=== PATIENT | female | born 1990 | race Caucasian/White ===

== ENCOUNTER → 2018-05-06 | Outpatient (CLI) | payer OTHER | LOC: COL.RAD 12:34 | DX: N99.89 Other postprocedural complications and disorders of genitourinary system (principal); N97.1 Female infertility of tubal origin | CPT/HCPCS: Q9967 ==

== ENCOUNTER → 2018-12-28 | Day surgery (SDC) | payer OTHER ==
[~2018-12-28] VITALS: Ht 157.5 cm; Wt 56.0 kg
[~2018-12-28] MED LIST: AMBIEN 5MG TABLE5 MG PO; CEPHALEXIN500 M1 PO; PAXIL 20MG20 MG PO
[2018-12-28 09:45] VITALS: BP 105/60; PULSE 82; TEMP 97.4
[2018-12-28 11:17] VITALS: BP 103/59; PULSE 63; TEMP 98.1
--- NOTE | 2018-12-28 11:17 | NUR ---
Patient arrives back to [facility] drowsy, denies pain or nausea. Patient monitor applied vitals stable. Patient's dressing clean/dry/intact. Patient's friend brought to bedside. Patient given ice chips and soda.
[2018-12-28 11:30] VITALS: BP 92/68; PULSE 67
--- NOTE | 2018-12-28 11:30 | NUR ---
[employer] rep into see patient at this time.
[2018-12-28 11:45] VITALS: BP 93/67; PULSE 63
--- NOTE | 2018-12-28 11:45 | NUR ---
Patient reports she is feeling good and is ready to go home. Vitals stable and within baseline normal limits for patient. Patient tolerates ice chips, soda and crackers well without any nausea. Patient denies pain.
== END ==
LOC: SDCO 08:52
DX: N39.41 Urge incontinence (principal); R35.0 Frequency of micturition; R35.1 Nocturia; R39.11 Hesitancy of micturition; R39.14 Feeling of incomplete bladder emptying; F17.210 Nicotine dependence, cigarettes, uncomplicated; F41.9 Anxiety disorder, unspecified; F32.9 Major depressive disorder, single episode, unspecified; G43.909 Migraine, unspecified, not intractable, without status migrainosus; Z91.040 Latex allergy status
CPT/HCPCS: C1767; C1778; C1787; C1894; J0690; J1580; J1885; J2405; J2704; J3010; J7120

== ENCOUNTER 2019-11-16 16:48 | Emergency (ER) | payer OTHER ==
[~2019-11-16] VITALS: Ht 157.5 cm; Wt 76.4 kg
[2019-11-16 18:05] LABS: BASO % 0.3 % (0.0-2.0); EOS # 0.2 (0.0-0.7); EOS % 1.8 % (0-4.0); GRAN % 67.9 % (42.2-75.2); HEMATOCRIT 42.2 % (37.0-47.0); HEMOGLOBIN 13.9 g/dl (12.5-16.0); LYMPH # 2.2 (1.2-3.4); LYMPH % 24.3 % (20.0-51.0); MEAN CELL VOLUME 92 fl (80.0-100.0); MEAN CORPUSCULAR HEMOGLOBIN 30 pg (27.0-31.0); MEAN CORPUSCULAR HGB CONC 33 g/dl (33.0-37.0); MEAN PLATELET VOLUME 9.7 fl (7.4-10.4); MONO # 0.5 (0.1-0.6); MONO % 5.2 % (1.7-9.3); PLATELET COUNT 255 K/mm3 (130-400); REDCELL DISTRIBUTION WIDTH-CV 12.5 % (11.5-14.5)
[2019-11-16 18:11] LABS: ALBUMIN 2.9 gm/dL (3.5-5.0); BILIRUBIN,TOTAL 0.6 mg/dL (0.0-1.0); CALCIUM 8.6 mg/dL (8.4-10.2); CREATININE, serum 0.7 (0.52-1.25); POTASSIUM 3.1 mmol/L (3.4-5.0); TOTAL PROTEIN 5.2 gm/dL (6.4-8.2)
[2019-11-16 18:42] LABS: COLLECTION METHOD CLEAN CATCH
[2019-11-16 18:52] LABS: MUCOUS Present /lpf; PH 5 (5-8); URINE APPEARANCE Cloudy; URINE BACTERIA None Seen /hpf; URINE BILIRUBIN Negative (NEGATIVE); URINE BLOOD Negative (NEGATIVE); URINE COLOR Yellow; URINE GLUCOSE 1+ (NEGATIVE); URINE KETONE Trace (NEGATIVE); URINE LEUKOCYTE ESTERASE 2+ (NEGATIVE); URINE NITRATE Negative (NEGATIVE); URINE PROTEIN(semi-quant) Negative (NEGATIVE); URINE UROBILINOGEN Negative (NEGATIVE)
[2019-11-16] MEDS ORDERED: K-DUR20 MEQ PO (20:18)
[2019-11-16] MEDS ORDERED: MACROBID 1100 MG/CAP PO (20:18)
[2019-11-16 20:30] VITALS: BP 112/70; PULSE 68; TEMP 98
== END 2019-11-16 20:30 | disposition home or self-care (01) ==
LOC: COL.ER 16:48
PROVIDERS: Nurse Practitioner Primary Care
DX: N39.0 Urinary tract infection, site not specified (principal); E87.6 Hypokalemia; E86.0 Dehydration; K58.9 Irritable bowel syndrome, unspecified; G43.909 Migraine, unspecified, not intractable, without status migrainosus; F32.9 Major depressive disorder, single episode, unspecified; F17.210 Nicotine dependence, cigarettes, uncomplicated
CPT/HCPCS: J2405; J7030

== ENCOUNTER 2019-12-13 13:26 | Emergency (ER) | payer SELFPAY ==
[~2019-12-13] VITALS: Ht 157.5 cm; Wt 75.0 kg
[~2019-12-13 13:26] MED LIST changes: +K-DUR20 MEQ PO; +MACROBID 1100 MG/CAP PO
[2019-12-13 13:29] VITALS: TEMP 98.4
[2019-12-13 13:49] LABS: COLLECTION METHOD CLEAN CATCH
[2019-12-13 14:00] LABS: MUCOUS Present /lpf; PH 5 (5-8); URINE APPEARANCE Cloudy; URINE BACTERIA Rare /hpf; URINE BILIRUBIN Negative (NEGATIVE); URINE BLOOD Negative (NEGATIVE); URINE COLOR Yellow; URINE GLUCOSE Negative (NEGATIVE); URINE KETONE Negative (NEGATIVE); URINE LEUKOCYTE ESTERASE 3+ (NEGATIVE); URINE NITRATE Negative (NEGATIVE); URINE PROTEIN(semi-quant) Negative (NEGATIVE); URINE UROBILINOGEN Negative (NEGATIVE)
[2019-12-13] MEDS ORDERED: CEPHALEXIN500 M1 PO (14:16)
[2019-12-13] MEDS ORDERED: PYRIDIUM200 M1 PO (14:18)
[2019-12-13 14:23] VITALS: BP 112/79; PULSE 96
== END 2019-12-13 14:24 | disposition home or self-care (01) ==
LOC: COL.ER 13:26
PROVIDERS: Physician Assistant
DX: N39.0 Urinary tract infection, site not specified (principal); F41.9 Anxiety disorder, unspecified; F17.210 Nicotine dependence, cigarettes, uncomplicated; F32.9 Major depressive disorder, single episode, unspecified

== ENCOUNTER 2020-04-27 21:54 | Emergency (ER) | payer SELFPAY ==
[~2020-04-27] VITALS: Ht 157.5 cm; Wt 81.8 kg
[~2020-04-27 21:54] MED LIST changes: +PYRIDIUM200 M1 PO
[2020-04-27 22:09] VITALS: TEMP 98.3
[2020-04-27 22:38] LABS: BASO # 0.1 (0.0-0.2); BASO % 0.9 % (0.0-2.0); EOS # 1.2 (0.0-0.7); EOS % 9.8 % (0-4.0); GRAN # 6.6 (1.4-6.5); GRAN % 55.4 % (42.2-75.2); HEMATOCRIT 38.3 % (37.0-47.0); HEMOGLOBIN 12.7 g/dl (12.5-16.0); LYMPH # 3.3 (1.2-3.4); LYMPH % 27.6 % (20.0-51.0); MEAN CELL VOLUME 89 fl (80.0-100.0); MEAN CORPUSCULAR HEMOGLOBIN 30 pg (27.0-31.0); MEAN CORPUSCULAR HGB CONC 33 g/dl (33.0-37.0); MEAN PLATELET VOLUME 9.3 fl (7.4-10.4); MONO # 0.7 (0.1-0.6); MONO % 5.8 % (1.7-9.3); PLATELET COUNT 317 K/mm3 (130-400); REDCELL DISTRIBUTION WIDTH-CV 12.9 % (11.5-14.5)
[2020-04-27] MEDS ORDERED: CHERATUSSIN AC120 ML PO (23:55)
[2020-04-28 00:11] VITALS: BP 138/70; PULSE 78
== END 2020-04-28 00:11 | disposition home or self-care (01) ==
LOC: COL.ER 21:54
PROVIDERS: Physician Assistant
DX: B34.9 Viral infection, unspecified (principal); F45.8 Other somatoform disorders; Z20.828 Contact with and (suspected) exposure to other viral communicable diseases; F17.210 Nicotine dependence, cigarettes, uncomplicated; Z32.02 Encounter for pregnancy test, result negative; Z79.2 Long term (current) use of antibiotics
CPT/HCPCS: J2060; J7030